=== PATIENT | male | born 1985 | race Caucasian/White ===

== ENCOUNTER 2016-02-15 04:31 | Emergency (ER) | payer MEDICAID, OTHER ==
[~2016-02-15] VITALS: Ht 172.7 cm; Wt 68.0 kg
[~2016-02-15 04:31] MED LIST: CHLO.12%30 SSP; IBUP800T23 PO; PENI500T PO
[2016-02-15 04:33] VITALS: BP 141/99; PULSE 92; RESP 18; TEMP 98.1; O2SAT 97
[2016-02-15] MEDS ORDERED: METH10TA PO (05:30)
--- NOTE | 2016-02-15 05:59 | PD ---
HPI Chief Complaint: Facial Pain or Swelling Time Seen by Provider: 05:58 Travel History International Travel<30 days: No Contact w/Intl Traveler<30days: No Traveled to known affect area: No History of Present Illness HPI 30-year-old male presents to the emergency department for left-sided facial swelling and dental pain. Patient states she was seen recently at [facility] and given an injection for dental abscess and since receiving injection swelling has markedly increased. Patient rates pain PFSH Past Medical History Diminished Hearing: No Deep Vein Thrombosis: No Integumentary: Yes (skin CA to back) Tetanus Vaccination: Unknown Influenza Vaccination: No Past Surgical History Ear Surgery: Yes (" CHILD TUBES IN EARS") Tonsillectomy: Yes Tympanostomy Tube: Yes Other Surgery: Yes (bilateral tubes in ears) Social History Alcohol Use: Yes (OCC) Tobacco Use: Yes (/2 PPD.) Substance Use: No Allergies-Medications (Allergen,Severity, Reaction): Coded Allergies: Keflex (Verified Allergy, Severe, HIVES, 02/15/16) Reported Meds & Prescriptions Reported Meds & Active Scripts Active Clindamycin (Clindamycin HCl) 150 Mg Cap 300 Mg PO Q6H 7 Days Ibuprofen 600 Mg Tab 600 Mg PO Q6H PRN Reported Methadone (Methadone HCl) 10 Mg Tab 150 Mg PO DAILY Review of Systems General / Constitutional: No: Fever, Chills HENT: Positive: Congestion Cardiovascular: No: Chest Pain or Discomfort, Palpitations Gastrointestinal: No: Nausea, Vomiting Genitourinary: No: Decreased Urinary Output Musculoskeletal: No: Myalgias, Arthralgias Skin: Positive Rash, Positive Lumps Neurologic: No: Weakness Psychiatric: No: Anxiety Hematologic/Lymphatic: No: Lymph Node Enlargement Physical Exam Narrative GENERAL: Well-developed well-nourished male in no acute distress no respiratory distress SKIN: Warm and dry. HEAD: Normocephalic. EYES: No scleral icterus. No injection or drainage. ENT: #14 tooth with gingival edema and overlying fluctuance with buccal edema and induration without fluctuance cheek is erythematous and tender to palpation no periorbital edema. No trismus. Tympanic membranes no redness no dullness no loss of landmarks no perforation. NECK: Supple, trachea midline. No JVD or lymphadenopathy. No meningismus no nuchal rigidity. CARDIOVASCULAR: Regular rate and rhythm without murmurs, gallops, or rubs. RESPIRATORY: Breath sounds equal bilaterally. No accessory muscle use. GASTROINTESTINAL: Abdomen soft, non-tender, nondistended. MUSCULOSKELETAL: No cyanosis, or edema. BACK: Nontender without obvious deformity. No CVA tenderness. Data Data Last Documented VS Vital Signs Date Time Temp Pulse Resp B/P Pulse Ox O2 Delivery O2 Flow Rate FiO2 02/15/16 07:55 84 18 122/80 98 Room Air 02/15/16 04:33 98.1 Orders ^ Saline Lock (02/15/16 05:58) Clindamycin Inj (Cleocin Inj) (02/15/16 06:00) Ketorolac Inj (Toradol Inj) (02/15/16 06:00) Ondansetron Inj (Zofran Inj) (02/15/16 08:00) Ondansetron Inj (Zofran Inj) (02/15/16 07:46) MDM Medical Decision Making Medical Screen Exam Complete: Yes Emergency Medical Condition: Yes Medical Record Reviewed: Yes Differential Diagnosis Dentalgia, dental abscess, apical abscess, gingival abscess, facial cellulitis, facial abscess Narrative Course Patient with gingival fluctuance overlying the number 14th tooth with tenderness and dental [place] noted. Secondary soft tissue swelling to the buccal mucosa indurated nonfluctuant. Patient administered IV clindamycin due to antibiotic allergy. Patient also administered Toradol 30 mg IV. With patient' s consent punch incision with 11 blade scalpel performed at the fluctuant abscess of the gingiva overlying the 14 tooth with purulent drainage. Patient tolerated procedure well. Patient is aware of need for close follow-up with dentist. Patient encouraged to return immediately to the emergency department if fever or no improvement. Patient also given prescription for ibuprofen and clindamycin as an outpatient. Diagnosis Primary Impression: Dental abscess Referrals: Dentist call for appointment call office in am to schedule appointment Patient Instructions: General Instructions Additional Instructions: Take acetaminophen as needed for fever 100.4F or greater Take prescription ibuprofen as needed for pain associated with inflammation or for fever 100.4F or greater Continue current medication methadone as prescribed Complete course of antibiotic clindamycin as prescribed [place] follow-up with dentist Return to the emergency department for any concerns or change in condition Med/Other Pt SpecificInfo: Prescription(s) given Scripts Clindamycin 150 Mg [id number] Mg PO Q6H 7 Days Ref 0 Prov:Danya Barfield MD 02/15/16 Ibuprofen 600 Mg [id number] Mg PO Q6H PRN (PAIN GREATER THAN 5) #20 TAB Ref 0 Prov:Danya Barfield MD 02/15/16 Disposition: 01 DISCHARGE HOME Condition: Stable Danya Barfield MD Feb 15, 2016 05:59
[2016-02-15] MEDS ORDERED: KETOROLAC TROMETHAMINE 30 MG/ML (IVP) VIAL IV PUSH ONE (06:00)
[2016-02-15] MEDS ORDERED: CLINDAMYCIN INJ 900 MG in SODIUM CHLORIDE 0.9% INJ 100 ML IV ONE (06:00)
[2016-02-15] MEDS ORDERED: ONDANSETRON HCL 4 MG/2 ML VIAL ONE (07:46)
[2016-02-15] MEDS ORDERED: IBUP-232 PO (07:46)
[2016-02-15] MEDS ORDERED: CLIN1CAP5 PO (07:47)
[2016-02-15 07:55] VITALS: BP 122/80; PULSE 84; RESP 18; O2SAT 98
[2016-02-15] MEDS ORDERED: ONDANSETRON HCL 4 MG/2 ML VIAL IV PUSH ONE (08:00)
== END 2016-02-15 08:24 | disposition home or self-care (01) ==
LOC: NEPC 04:31
DX: K04.7 Periapical abscess without sinus (principal); F17.210 Nicotine dependence, cigarettes, uncomplicated
CPT/HCPCS: 41800; 96374; 96375; 99283; J1885; J2405

== ENCOUNTER 2017-04-18 16:10 | Emergency (ER) | payer MEDICAID ==
[~2017-04-18 16:10] MED LIST changes: -CHLO.12%30 SSP; +CLIN150C14 PO; +IBUP-232 PO; -IBUP800T23 PO; +METH10TA PO; -PENI500T PO
[2017-04-18 16:25] VITALS: BP 139/77; PULSE 65; RESP 16; TEMP 99; O2SAT 100
[2017-04-18 17:36] LABS: AUTOMATED NEUTROPHIL # 3.4 TH/MM3 (1.8-7.7); BASOPHIL % 0.4 % (0.0-2.0); EOSINOPHIL # 0.2 TH/MM3 (0-0.4); EOSINOPHIL % 3.4 % (0.0-4.0); HEMATOCRIT 39.7 % (39.0-51.0); HEMOGLOBIN 13.8 GM/DL (13.0-17.0); LYMPH % 29.7 % (9.0-44.0); LYMPHOCYTE # 1.7 TH/MM3 (1.0-4.8); MEAN CELL VOLUME 92.8 FL (80.0-100.0); MEAN CORPUSCULAR HEMOGLOBIN 32.4 PG (27.0-34.0); MEAN CORPUSCULAR HGB CONC 34.9 % (32.0-36.0); MEAN PLATELET VOLUME 7.5 FL (7.0-11.0); MONO % 6.1 % (0.0-8.0); MONOCYTE # 0.3 TH/MM3 (0-0.9); NEUT % 60.4 % (16.0-70.0); PLATELET COUNT 180 TH/MM3 (150-450); RED BLOOD COUNT 4.27 MIL/MM3 (4.50-5.90); RED CELL DISTRIBUTION WIDTH 12.3 % (11.6-17.2); WHITE BLOOD COUNT 5.7 TH/MM3 (4.0-11.0)
[2017-04-18 17:46] LABS: INTERNATIONAL NORMALIZED RATIO 1.1 RATIO; PROTHROMBIN TIME - PATIENT 10.7 SEC (9.8-11.6)
[2017-04-18 17:56] LABS: ALBUMIN 3.9 GM/DL (3.4-5.0); ALT (GPT) 23 U/L (12-78); AST (GOT) 15 U/L (15-37); BICARBONATE 27.1 MEQ/L (21.0-32.0); BLOOD UREA NITROGEN 13 MG/DL (7-18); CALCIUM 8.3 MG/DL (8.5-10.1); CHLORIDE 105 MEQ/L (98-107); CREATININE 0.81 MG/DL (0.60-1.30); GLOMERULAR FILTRATION RATE 110 ML/MIN (>89); GLUCOSE,RANDOM 77 MG/DL (74-106); SODIUM (NA) 141 MEQ/L (136-145)
[2017-04-18 17:58] LABS: ALKALINE PHOSPHATASE 78 U/L (45-117); TOTAL BILIRUBIN ADULT 0.3 MG/DL (0.2-1.0); TOTAL PROTEIN 7.4 GM/DL (6.4-8.2)
--- NOTE | 2017-04-18 18:07 | PD ---
HPI Chief Complaint: GI Complaint Time Seen by Provider: 17:47 Travel History International Travel<30 days: No Contact w/Intl Traveler<30days: No Traveled to known affect area: No History of Present Illness HPI 32-year-old male came to the emergency room with history vomiting earlier this afternoon after drinking some orange Vamsi-Aid in the vomit looked like there was some blood in it. Patient has not had any more episodes of emesis or bloody emesis since then. He is here to get checked. She has never had this kind of history in the past. No history of endoscopy in the past. Patient is on methadone. He says that he drinks 3-4 large beers every day. Vital signs are otherwise stable. There was blood work initiated in triage. No history of lightheadedness or syncopal episode. No history of bloody stool. [facility] Past Medical History Narrative Medical List of his past medical, surgical, social and family history is reviewed from the nursing note. Diminished Hearing: No Deep Vein Thrombosis: No Integumentary: Yes (skin CA to back) Tetanus Vaccination: Unknown Influenza Vaccination: No Past Surgical History Ear Surgery: Yes (" CHILD TUBES IN EARS") Tonsillectomy: Yes Tympanostomy Tube: Yes Other Surgery: Yes (bilateral tubes in ears) Social History Alcohol Use: Yes (3-4 BEERS PER DAY) Tobacco Use: Yes (1 PPD) Substance Use: No Allergies-Medications (Allergen,Severity, Reaction): Coded Allergies: cephalexin (Unverified Allergy, Severe, HIVES, 04/18/17) Comments List of his allergies reviewed from the nursing note. Reported Meds & Prescriptions Reported Meds & Active Scripts Active Omeprazole 20 Mg Tab 20 Mg PO DAILY Reported Methadone (Methadone HCl) 10 Mg Tab 140 Mg PO DAILY Narrative Medication List of his home medications reviewed from the nursing note. Review of Systems Except as stated in HPI: all other systems reviewed are Neg Gastrointestinal: Positive: Hematemesis Physical Exam Narrative GENERAL: Awake, alert, no obvious distress SKIN: Focused skin assessment warm/dry. Alopecia areata HEAD: Atraumatic. Normocephalic. EYES: Pupils equal and round. No scleral icterus. No injection or drainage. ENT: No nasal bleeding or discharge. Mucous membranes pink and moist. NECK: Trachea midline. No JVD. CARDIOVASCULAR: Regular rate and rhythm. No murmur appreciated. RESPIRATORY: No accessory muscle use. Clear to auscultation. Breath sounds equal bilaterally. GASTROINTESTINAL: Abdomen soft, non-tender, nondistended. Hepatic and splenic margins not palpable. MUSCULOSKELETAL: No obvious deformities. No clubbing. No cyanosis. No edema. NEUROLOGICAL: Awake and alert. No obvious cranial nerve deficits. Motor grossly within normal limits. Normal speech. PSYCHIATRIC: Appropriate mood and affect; insight and judgment normal. Data Data Last Documented VS Vital Signs Date Time Temp Pulse Resp B/P (MAP) Pulse Ox O2 Delivery O2 Flow Rate FiO2 04/18/17 16:25 99.0 65 16 139/77 (97) 100 Orders Orders Complete Blood Count With Diff (04/18/17 16:28) Comprehensive Metabolic Panel (04/18/17 16:28) Lipase (04/18/17 16:28) Prothrombin Time / Inr (Pt) (04/18/17 16:28) Act Partial Throm Time (Ptt) (04/18/17 16:28) Ed Discharge Order (04/18/17 18:21) Labs Laboratory Tests Test 04/18/17 17:17 White Blood Count 5.7 TH/MM3 Red Blood Count 4.27 MIL/MM3 Hemoglobin 13.8 GM/DL Hematocrit 39.7 % Mean Corpuscular Volume 92.8 FL Mean Corpuscular Hemoglobin 32.4 PG Mean Corpuscular Hemoglobin Concent 34.9 % Red Cell Distribution Width 12.3 % Platelet Count 180 TH/MM3 Mean Platelet Volume 7.5 FL Neutrophils (%) (Auto) 60.4 % Lymphocytes (%) (Auto) 29.7 % Monocytes (%) (Auto) 6.1 % Eosinophils (%) (Auto) 3.4 % Basophils (%) (Auto) 0.4 % Neutrophils # (Auto) 3.4 TH/MM3 Lymphocytes # (Auto) 1.7 TH/MM3 Monocytes # (Auto) 0.3 TH/MM3 Eosinophils # (Auto) 0.2 TH/MM3 Basophils # (Auto) 0.0 TH/MM3 CBC Comment DIFF FINAL Differential Comment Prothrombin Time 10.7 SEC Prothromb Time International Ratio 1.1 RATIO Activated Partial Thromboplast Time 26.8 SEC Blood Urea Nitrogen 13 MG/DL Creatinine 0.81 MG/DL Random Glucose 77 MG/DL Total Protein 7.4 GM/DL Albumin 3.9 GM/DL Calcium Level 8.3 MG/DL Alkaline Phosphatase 78 U/L Aspartate Amino Transf (AST/SGOT) 15 U/L Alanine Aminotransferase (ALT/SGPT) 23 U/L Total Bilirubin 0.3 MG/DL Sodium Level 141 MEQ/L Potassium Level 3.9 MEQ/L Chloride Level 105 MEQ/L Carbon Dioxide Level 27.1 MEQ/L Anion Gap 9 MEQ/L Estimat Glomerular Filtration Rate 110 ML/MIN Lipase 127 U/L [facility] Medical Decision Making Medical Screen Exam Complete: Yes Emergency Medical Condition: Yes Medical Record Reviewed: Yes Differential Diagnosis Upper GI bleed, gastritis Narrative Course 6:24 PM blood test results are back and H&H is stable. Patient has stable vital signs. Given the negative rectal for Hemoccult I am comfortable discharging him home. He will go home on instructions which I have explained to him thoroughly. Procedures EKG Prior to Arrival: No HemaPrompt Point of Care Internal Pos. & Neg. Controls: Passed Fecal Specimen Occult Blood: Negative Diagnosis Primary Impression: Hematemesis Qualified Codes: K92.0 - Hematemesis Referrals: Primary Care Physician Additional Instructions: Return to the emergency room if the condition worsens or any other new concerns. Otherwise he should not be drinking alcohol and eat bland diet for next 24-48 hours. Drink alcohol in moderation. Med/Other Pt SpecificInfo: Prescription(s) given Scripts Omeprazole (Omeprazole) 20 Mg Tab 20 MG PO DAILY, #15 TAB 0 Refills Prov: Lin Wagner MD 04/18/17 Disposition: 01 DISCHARGE HOME Condition: Stable Lin Wagner MD Apr 18, 2017 18:07
[2017-04-18] MEDS ORDERED: OMEP20TA93 PO (18:21)
== END 2017-04-18 19:04 | disposition home or self-care (01) ==
LOC: NEPD 16:10
DX: K92.0 Hematemesis (principal); F17.210 Nicotine dependence, cigarettes, uncomplicated; Z88.8 Allergy status to other drugs, medicaments and biological substances; Z85.828 Personal history of other malignant neoplasm of skin
CPT/HCPCS: 80053; 83690; 85025; 85610; 85730; 99283